=== PATIENT | female | born 1985 | race African-American/Black ===

== ENCOUNTER 2016-08-14 20:05 | Emergency (ER) | payer SELFPAY ==
[2016-08-14] MEDS ORDERED: OXYCODONE-ACETAMINOPHEN 5-325 MG TABLET PO ONE (20:52)
--- NOTE | 2016-08-14 20:52 | ER Document Report ---
ED Medical Screen (RME) - General Stated Complaint: LOWER ABDOMINAL PAIN Notes: 31 yo female c/o lower abdominal pain x 3 days. no vaginal bleeding. + low back pain. + frequency, no dysuria. no fever. + nausea. no vomiting. LMP 05/13/15
[2016-08-14 21:31] LABS: ABSOLUTE BASOPHILS # (AUTO) 0.1 10^3/uL (0.0-0.2); ABSOLUTE EOSINOPHILS # (AUTO) 0.2 10^3/uL (0.0-0.6); ABSOLUTE LYMPHOCYTES (AUTO) 3.1 10^3/uL (0.5-4.7); ABSOLUTE NEUT (AUTO) 7.2 10^3/uL (1.7-8.2); EOSINOPHILS % (AUTO) 1.5 % (0-6); HEMOGLOBIN 14.4 g/dL (12.0-15.5); HGB HCT DIFFERENCE 0.2; LYMPHOCYTES % (AUTO) 26.8 % (13-45); MEAN CORPUSCULAR HEMOGLOBIN 28.5 pg (27.0-33.4); MEAN CORPUSCULAR HGB CONC 33.5 g/dL (32.0-36.0); MEAN CORPUSCULAR VOLUME 85 fl (80-97); MONOCYTES % (AUTO) 8.5 % (3-13); RED BLOOD COUNT 5.06 10^6/uL (3.72-5.28); RED CELL DISTRIBUTION WIDTH 13.1 % (11.5-14.0); SEGMENTED NEUTROPHILS % (AUTO) 62.2 % (42-78); WHITE BLOOD COUNT 11.5 10^3/uL (4.0-10.5)
[2016-08-14 21:41] LABS: APPEARANCE,URINE SLIGHTLY-CLOUDY; BILIRUBIN,URINE NEGATIVE (NEGATIVE); GLUCOSE, URINE NEGATIVE (NEGATIVE); KETONES,URINE NEGATIVE (NEGATIVE); LEUKOCYTE ESTERASE,URINE TRACE (NEGATIVE); NITRITE,URINE NEGATIVE (NEGATIVE); PROTEIN,URINE NEGATIVE (NEGATIVE); URINE SPECIFIC GRAVITY 1.026
[2016-08-14 21:52] LABS: ALANINE AMINOTRANSFERASE 32 U/L (9-52); ALBUMIN 4.1 g/dL (3.5-5.0); ALKALINE PHOSPHATASE 56 U/L (38-126); ANION GAP 14 (5-19); ASPARTATE AMINO TRANSFERASE 22 U/L (14-36); BILIRUBIN,TOTAL 0.6 mg/dL (0.2-1.3); BLOOD UREA NITROGEN 11 mg/dL (7-20); CALCIUM 10.1 mg/dL (8.4-10.2); CARBON DIOXIDE 29 mmol/L (22-30); CHLORIDE 99 mmol/L (98-107); CREATININE RESULT 0.66 mg/dL (0.52-1.25); GLUCOSE 100 mg/dL (75-110); POTASSIUM 4.6 mmol/L (3.6-5.0); SODIUM 141.7 mmol/L (137-145); TOTAL PROTEIN 8.5 g/dL (6.3-8.2)
[2016-08-14] MEDS ORDERED: CEPHALEXIN 500 MG CAPSULE PO ONE (23:21)
--- NOTE | 2016-08-14 23:23 | ER Document Report ---
ED GI/ - General Time seen by provider: 23:15 Mode of Arrival: Ambulatory Information source: Patient TRAVEL OUTSIDE OF THE [place] IN LAST 30 DAYS: No - HPI Patient complains to provider of: Abdominal pain. No: Diarrhea, Dysuria, Vaginal discharge, Vomiting Onset: This afternoon Timing/Duration: Sudden Quality of pain: Pressure, Sharp Location: Left flank, Suprapubic Vaginal bleeding (Compared to normal period): Spotting Associated symptoms: Nausea. denies: Dysuria, Urinary hesitancy, Urinary frequency, Urinary retention, Urinary urgency <KARY HOLMAN - Last Filed: 08/15/16 02:41> - General TRAVEL OUTSIDE OF THE [place] IN LAST 30 DAYS: No <JOSE WHITESIDE - Last Filed: 08/15/16 05:13> - General Chief Complaint: Lower Abdominal Pain Stated Complaint: LOWER ABDOMINAL PAIN Notes: Patient is a 31 year old female presenting to the emergency department complaining of sharp suprapubic pain. Patient's pain started today while at work. Patient states she thought that she was getting her menstrual period and states that she had some slight spotting a few days prior. Patient states that at the time of exam she only has some pressure. Patient also complains of some "pressure" in the left side of her lower back and states her suprapubic pain is also worse on the left side than the right. Patient also complains of being nauseous. Patient denies any urinary symptoms or dysuria, vaginal discharge, vomiting, or diarrhea. Patient had a left oophorectomy. Patient has no allergies. (KARY HOLMAN) Past Medical History - General Information source: Patient - Social History Smoking Status: Unknown if Ever Smoked Family History: None Patient has suicidal ideation: No Patient has homicidal ideation: No Past Surgical History: Reports: Other - left oophorectomy <KARY HOLMAN - Last Filed: 08/15/16 02:41> - Social History Smoking Status: Unknown if Ever Smoked Patient has suicidal ideation: No Patient has homicidal ideation: No Renal/ Medical History: Denies: Hx Peritoneal Dialysis <JOSE WHITESIDE - Last Filed: 08/15/16 05:13> Review of Systems - Review of Systems Constitutional: No symptoms reported EENT: No symptoms reported Cardiovascular: No symptoms reported Respiratory: No symptoms reported Gastrointestinal: See HPI, Abdominal pain, Nausea. denies: Diarrhea, Vomiting Genitourinary: No symptoms reported. denies: Dysuria, Frequency, Urgency, Retention Female Genitourinary: No symptoms reported Musculoskeletal: No symptoms reported Skin: No symptoms reported Hematologic/Lymphatic: No symptoms reported Neurological/Psychological: No symptoms reported -: Yes All other systems reviewed and negative <KARY HOLMAN - Last Filed: 08/15/16 02:41> Physical Exam - Vital signs Interpretation: Normal - General General appearance: Appears well, Alert In distress: Mild - HEENT Head: Normocephalic, Atraumatic Eyes: Normal Pupils: PERRL Mucous membranes: Normal - Respiratory Respiratory status: No respiratory distress Chest status: Nontender Breath sounds: Normal Chest palpation: Normal - Cardiovascular Rhythm: Regular Heart sounds: Normal auscultation - Abdominal Inspection: Obese Distension: No distension Bowel sounds: Normal Tenderness: Tender - suprapubic tenderness to palpation Organomegaly: No organomegaly - Back Back: Normal, Nontender - no CVA tenderness - Extremities General upper extremity: Normal inspection, Normal ROM, Normal strength General lower extremity: Normal inspection, Normal ROM, Normal strength - Neurological Neuro grossly intact: Yes Cognition: Normal Orientation: AAOx4 Moran Coma Scale Eye Opening: Spontaneous Sharon Coma Scale Verbal: Oriented Moran Coma Scale Motor: Obeys Commands Sharon Coma Scale Total: 15 Speech: Normal Sensory: Normal - Psychological Associated symptoms: Normal affect, Normal mood - Skin Skin Temperature: Warm Skin Moisture: Dry <KARY HOLMAN - Last Filed: 08/15/16 02:41> Course - Laboratory Result Diagrams: 08/14/16 21:15 08/14/16 21:15 <[email or web address] - Last Filed: 08/15/16 02:41> - Laboratory Result Diagrams: 08/14/16 21:15 08/14/16 21:15 <JOSE WHITESIDE - Last Filed: 08/15/16 05:13> - Re-evaluation Re-evalutation: 08/15/16 Patient appears well. She is not . Blood work within normal limits. Symptoms concerning for UTI. Patient will be started on Keflex and is to follow -up with her doctor. Return if any worsening or concerning symptoms. Stable for discharge. Abdomen is benign. (JOSE WHITESIDE) - Laboratory Laboratory results interpreted by me: 08/14/16 08/14/16 08/14/16 21:15 21:15 21:15 WBC 11.5 H Total Protein 8.5 H Urine Urobilinogen 2.0 H Ur Leukocyte Esterase TRACE H (KARY HOLMAN) (JOSE WHITESIDE) Discharge <KARY HOLMAN - Last Filed: 08/15/16 02:41> <JOSE WHITESIDE - Last Filed: 08/15/16 05:13> - Discharge Clinical Impression: Pelvic pain UTI (urinary tract infection) Qualifiers: Urinary tract infection type: site unspecified Hematuria presence: without hematuria Qualified Code(s): N39.0 - Urinary tract infection, site not specified Condition: Stable Disposition: HOME, SELF-CARE Instructions: Urinary Tract Infection ([facility]), Pelvic Pain ([facility]) Prescriptions: Cefdinir [Omnicef 300 mg Capsule] 1 cap PO BID #14 capsule Forms: Return to Work Scribe Attestation: 08/15/16 05:13 I personally performed the services described in the documentation, reviewed and edited the documentation which was dictated to the scribe in my presence, and it accurately records my words and actions. (JOSE WHITESIDE) Scribe Documentation <KARY HOLMAN - Last Filed: 08/15/16 02:41> <JOSE WHITESIDE - Last Filed: 08/15/16 05:13> - Scribe Written by Scribe:: Dr. Whiteside (KARY HOLMAN)
== END 2016-08-15 00:30 | disposition home or self-care (01) ==
LOC: ER 20:05
DX: N39.0 Urinary tract infection, site not specified (principal); R10.2 Pelvic and perineal pain; R11.0 Nausea; Z90.721 Acquired absence of ovaries, unilateral
CPT/HCPCS: 36415; 80053; 81001; 84703; 85025; 87086; 99284

== ENCOUNTER 2017-09-17 19:00 | Emergency (ER) | payer SELFPAY ==
[2017-09-17 19:46] LABS: APPEARANCE,URINE CLEAR; BILIRUBIN,URINE NEGATIVE (NEGATIVE); COLOR,URINE YELLOW; GLUCOSE, URINE NEGATIVE (NEGATIVE); KETONES,URINE NEGATIVE (NEGATIVE); LEUKOCYTE ESTERASE,URINE NEGATIVE (NEGATIVE); NITRITE,URINE NEGATIVE (NEGATIVE); PROTEIN,URINE NEGATIVE (NEGATIVE); UROBILINOGEN,URINE NEGATIVE mg/dL (<2.0)
--- NOTE | 2017-09-17 19:54 | ER Document Report ---
ED GI/ - General Chief Complaint: Urinary Frequency Stated Complaint: FREQUENT URINATION Time Seen by Provider: 09/17/17 19:54 Mode of Arrival: Ambulatory Information source: Patient Notes: 32-year-old female presents to ED for complaint of urinary burning and frequency times 2-3 days with a positive test at home. States she has also been having some nausea. TRAVEL OUTSIDE OF THE [place] IN LAST 30 DAYS: No - HPI Patient complains to provider of: , Other - Frequency urgency and burning with urination 2-3 days Onset: Other - 2-3 days Timing/Duration: Gradual Quality of pain: Burning Severity at maximum: Moderate Severity in ED: Moderate Pain Level: 3 Location: Pelvis, Vaginal Vaginal bleeding (Compared to normal period): None Menstrual period history: LMP: 07/17/17 : 4 Para: 3 Associated symptoms: Nausea, Urinary frequency, Urinary urgency, Other Exacerbated by: Other Relieved by: Denies - Urination Similar symptoms previously: Yes Recently seen / treated by doctor: No - Related Data Allergies/Adverse Reactions: No Known Allergies Allergy (Unverified 09/17/17 19:00) Past Medical History - General Information source: Patient - Social History Smoking Status: Never Smoker Cigarette use (# per day): No Chew tobacco use (# tins/day): No Smoking Education Provided: No Frequency of alcohol use: None Drug Abuse: None Occupation: Medical records Lives with: Family Family History: DM, Hypertension, Malignancy. denies: Arthritis, CAD, COPD, CVA , Hyperlipidemia, Thyroid Disfunction Patient has suicidal ideation: No Patient has homicidal ideation: No - Past Medical History Cardiac Medical History: Reports: Hx Hypertension Pulmonary Medical History: Reports: None EENT Medical History: Reports: None Neurological Medical History: Reports: None Endocrine Medical History: Reports: None Renal/ Medical History: Reports: Hx Ovarian Cysts Malignancy Medical History: Reports: None GI Medical History: Reports: None Musculoskeltal Medical History: Reports None Skin Medical History: Reports None Psychiatric Medical History: Reports: None Traumatic Medical History: Reports: None Infectious Medical History: Reports: None Past Surgical History: Reports: Hx Gynecologic Surgery - Left oophorectomy due to ovarian torsion - Immunizations Immunizations up to date: Yes Hx Diphtheria, Pertussis, Tetanus Vaccination: Yes Review of Systems - Review of Systems Notes: Constitutional: [PRESENT: as per HPI. ABSENT: chills, fever(s), headache(s), weight gain, weight loss] Eyes: [ABSENT: visual disturbances] Ears: [ABSENT: hearing changes] Cardiovascular: [ABSENT: chest pain, dyspnea on exertion, edema, orthropnea, palpitations] Respiratory: [ABSENT: cough, hemoptysis] Gastrointestinal: [ABSENT: abdominal pain, constipation, diarrhea, hematemesis, hematochezia, nausea, vomiting] Genitourinary: Burning with urination, frequency, urgency, pelvic pain, positive test at home, patient states white vaginal discharge Musculoskeletal: [ABSENT: joint swelling] Integumentary: [ABSENT: rash, wounds] Neurological: [ABSENT: abnormal gait, abnormal speech, confusion, dizziness, focal weakness, syncope] Psychiatric: [ABSENT: anxiety, depression, homicidal ideation, suicidal ideation ] Endocrine: [ABSENT: cold intolerance, heat intolerance, menstrual abnormalities , polydipsia, polyuria] Hematologic/Lymphatic: [ABSENT: easy bleeding, easy bruising, lymphadenopathy] Physical Exam - Vital signs Vitals: Temp Pulse Resp BP Pulse Ox 98.6 F 90 20 157/104 H 98 09/17/17 19:07 09/17/17 19:07 09/17/17 19:07 09/17/17 19:07 09/17/17 19:07 - Notes Notes: PHYSICAL EXAMINATION: GENERAL: Well-appearing, well-nourished and in no acute distress. HEAD: Atraumatic, normocephalic. EYES: Pupils equal round and reactive to light, extraocular movements intact, conjunctiva are normal. ENT: Nares patent, oropharynx clear without exudates. Moist mucous membranes. NECK: Normal range of motion, supple without lymphadenopathy LUNGS: Breath sounds clear to auscultation bilaterally and equal. No wheezes rales or rhonchi. HEART: Regular rate and rhythm without murmurs ABDOMEN: Soft, nontender, nondistended abdomen. No guarding, no rebound. No masses appreciated. Suprapubic tenderness Female : deferred Musculoskeletal: Normal range of motion, no pitting or edema. No cyanosis. NEUROLOGICAL: Cranial nerves grossly intact. Normal speech, normal gait. Normal sensory, motor exams PSYCH: Normal mood, normal affect. SKIN: Warm, Dry, normal turgor, no rashes or lesions noted. Course - Re-evaluation Re-evalutation: 09/17/17 20:58 Patient was treated with azithromycin and Rocephin for her burning with urination and pelvic pain. Her urinalysis was negative for UTI but positive for . Her wet mount was negative except for 3+ WBCs. Patient has cerumen have been instructed no sexual intercourse until after they have gotten the results for the chlamydia and gonorrhea test. Patient and verbalized understanding and agreement with discharge instructions. Asked if they had any other questions or concerns. Both stated no they did not they understood that they should call tomorrow for the results and they understood that there was no sexual intercourse until they got the results and if it is positive that the needs to be treated and then they need to wait 5 days. Patient was instructed to please follow-up with her [employer]. - Vital Signs Vital signs: Temp Pulse Resp BP Pulse Ox 98.1 F 85 20 143/90 H 100 09/17/17 21:12 09/17/17 21:12 09/17/17 19:07 09/17/17 21:12 09/17/17 21:12 - Laboratory Laboratory results interpreted by me: 09/17/17 19:10 Urine HCG, Qual POSITIVE H Discharge - Discharge Clinical Impression: Pain with urination, Pelvic pain Qualifiers: Weeks of gestation: less than 8 weeks Qualified Code(s): Z3A.01 - Less than 8 weeks gestation of Condition: Stable Disposition: HOME, SELF-CARE Additional Instructions: Pelvic Pain in Lower abdominal pain during can have many causes. We look for serious causes such as appendicitis, tubal , miscarriage, placental separation, or urinary tract infection. Less serious causes of pain include corpus luteum cyst (ovarian cyst of ) or stretching of the pelvic tissues by the enlarging uterus. Sometimes the pain comes from the bowels. If no specific cause for the pain is found, we attribute the pain to stretching of the uterine ligaments. This is called "round ligament strain." It is not dangerous. Just rest until the pain goes away. Call us or come back for reexamination if any problems occur, such as: (1) Pain that becomes more severe, steady, or becomes concentrated in one specific area. Also, pain that is more severe with movement or coughing. (2) Vomiting that persists or becomes more frequent. (3) Blood in the vomitus, urine, or bowel movements. Blood in the stool may have a tarry or black appearance. (4) Shaking chills or fever greater than 100 degrees. (5) The abdomen becomes more distended or swollen. (6) Bowel movements cease. (7) Vaginal bleeding. CEPHALOSPORINS: An antibiotic of the cephalosporin class has been prescribed. This type of antibiotic covers a wide variety of infections, including those of the skin, lungs, middle ear, and urinary tract. This antibiotic is somewhat similar to the penicillin family. In rare cases , a person who is allergic to penicillin will also be allergic to this medication. If you have had a severe allergic reaction to penicillin, and have not taken this antibiotic since that time, notify your doctor. Antibiotics which cover many germs ("broad spectrum" antibiotics) are more likely to cause diarrhea or "yeast" infections. Women prone to vaginal yeast problems may suffer an attack after taking this antibiotic. In infants, oral thrush (white spots "stuck" on the cheek) or yeast diaper rash may result. See your doctor if these problems occur. Call the doctor at once if you develop hives, itching, shortness of breath , or lightheadedness. AZITHROMYCIN: Azithromycin (Zithromax) is a broad spectrum antibiotic in the same class as erythromycin. It can treat a variety of bacterial infections, but is most frequently used for respiratory infections. Azithromycin is extremely long-lasting. It accumulates in body tissues and continues to kill bacteria for many days. In order to improve absorption, Azithromycin should be taken at least one hour before or two hours after a meal. It does not have the same strong tendency to upset the stomach as erythromycin and is usually very well tolerated. Patients who have had a rash or other true allergic reactions to erythromycin should not take this medication. Call if you develop gastrointestinal distress, severe diarrhea, rash, hives, itching, or shortness of breath. Your nausea and can be treated with vitamin B6 which he can buy over- the-counter. You need 50 mg and take as per instructions on the bottle for . You can also ask your pharmacist further recommendations. You state this is your fourth so you know the medications you can and cannot take for . FOLLOW-UP CARE: If you have been referred to a physician for follow-up care, call the physician s office for an appointment as you were instructed or within the next two days. If you experience worsening or a significant change in your symptoms, notify the physician immediately or return to the Emergency Department at any time for re-evaluation. Referrals: [facility] [Provider Group] - Follow up as needed
[2017-09-17] MEDS ORDERED: PYRIDOXINE HCL 50 MG TABLET PO ONE (20:07)
[2017-09-17 20:25] LABS: BACTERIA (WET MOUNT) 3+ BACTERIA SEEN; T.VAGINALIS (WET MOUNT) NO TRICHOMONAS SEEN; YEAST (WET MOUNT) NO YEAST SEEN
[2017-09-17 20:27] LABS: RBCS (WET MOUNT) FEW RBCS SEEN; WBCS (WET MOUNT) 1+ WBCS SEEN
[2017-09-17] MEDS ORDERED: LIDOCAINE 1% INJ-PF (10 MG/ML) 30 ML SDV INJ ONE (20:57)
[2017-09-17] MEDS ORDERED: CEFTRIAXONE INJ 250 MG VIAL IM ONE (20:57)
[2017-09-17] MEDS ORDERED: AZITHROMYCIN 250 MG TABLET PO ONE (20:57)
[2017-09-17 21:13] VITALS: BP 143/90
[2017-09-17 21:48] LABS: CHLAM PCR NOT DETECTED (NOT DETECT); GON PCR NOT DETECTED (NOT DETECT)
== END 2017-09-17 21:27 | disposition home or self-care (01) ==
LOC: ER 19:00
DX: O26.891 Other specified pregnancy related conditions, first trimester (principal); R35.0 Frequency of micturition; R10.2 Pelvic and perineal pain; R11.0 Nausea; I10 Essential (primary) hypertension; Z3A.01 Less than 8 weeks gestation of pregnancy
CPT/HCPCS: 99283; 96372; 87210; 81025; 81001; 87491; 87591; J3490 ×2; J0696